=== PATIENT | male | born 1985 | race Caucasian/White ===

== ENCOUNTER 2020-05-05 14:32 | Outpatient (CLI) | payer OTHER ==
--- NOTE | 2020-05-05 15:31 | XRAY Report ---
PROCEDURE: Chest 2 View X-Ray INDICATIONS: PREVIOUS COVID-19 INFECTION TECHNIQUE: 2 view(s) of the chest. COMPARISON: None. FINDINGS: Surgical changes and devices: None. Lungs and pleura: No pleural effusions or pneumothorax. Lungs are clear. Mediastinum: Mediastinal contours are normal. Heart size is normal. Bones and chest wall: No suspicious bony abnormalities. Soft tissues appear unremarkable. IMPRESSION: Chest without acute cardiopulmonary abnormalities. No focal airspace disease. Reviewed by: Reji Jordan MD on 05/05/2020 3:30 PM PST Approved by: Reji Jordan MD on 05/05/2020 3:30 PM PST Station ID: [id number]
== END 2020-05-05 14:33 | disposition home or self-care (01) ==
LOC: DI.N 14:32
PROVIDERS: ATTEND Family Medicine
DX: U07.1 COVID-19 (principal)
CPT/HCPCS: 36415; 80053; 85025

== ENCOUNTER 2020-05-05 14:36 | Outpatient (CLI) | payer OTHER ==
[2020-05-05 18:14] LABS: BASOPHILS % (AUTO) 0.5 %; EOSINOPHILS # (AUTO) 0.2 10^3/uL (0.0-0.7); EOSINOPHILS % (AUTO) 3.6 %; HCT - HEMATOCRIT 46.8 % (42.0-52.0); HGB - HEMOGLOBIN 15.9 g/dL (14.0-18.0); LYMPHOCYTES # (AUTO) 2.5 10^3/uL (1.5-3.5); LYMPHOCYTES % (AUTO) 43.5 %; MEAN CORPUSCULAR HEMOGLOBIN 30.9 pg (27.0-31.0); MEAN CORPUSCULAR VOLUME 91.1 fL (80.0-94.0); MEAN PLATELET VOLUME 9.4 fL (7.4-11.4); MONOCYTES # (AUTO) 0.4 10^3/uL (0.0-1.0); NEUTROPHILS # (AUTO) 2.7 10^3/uL (1.5-6.6); NEUTROPHILS % (AUTO) 46.2 %; PLT - PLATELET COUNT 340 10^3/uL (130-450); RED BLOOD COUNT 5.14 10^6/uL (4.70-6.10); RED CELL DISTRIBUTION WIDTH 13.7 % (12.0-15.0); WHITE BLOOD COUNT 5.8 x10^3/uL (4.8-10.8)
[2020-05-05 18:29] LABS: ALBUMIN 4.8 g/dL (3.2-5.5); ALBUMIN/GLOBULIN RATIO 1.7 (1.0-2.2); BILIRUBIN,TOTAL 0.7 mg/dL (0.2-1.0); CALCIUM 9.8 mg/dL (8.5-10.3); CREATININE 0.9 mg/dL (0.6-1.2); POTASSIUM 3.8 mmol/L (3.5-5.0); TOTAL PROTEIN 7.7 g/dL (6.7-8.2)
== END 2020-05-05 14:37 | disposition home or self-care (01) ==
LOC: LAB.N 14:36
PROVIDERS: ATTEND Family Medicine
DX: U07.1 COVID-19 (principal)
CPT/HCPCS: 36415; 80053; 85025

== ENCOUNTER 2021-11-30 13:01 | Outpatient (CLI) | payer OTHER ==
[2021-11-30] MEDS ORDERED: ALBUTEROL 1 PUFF INH STA (14:27)
== END 2021-11-30 13:02 | disposition home or self-care (01) ==
LOC: RT 13:01
PROVIDERS: ATTEND Physician Assistant
DX: R06.02 Shortness of breath (principal)
CPT/HCPCS: 94060

== ENCOUNTER 2021-12-22 13:52 | Outpatient (CLI) | payer OTHER ==
--- NOTE | 2021-12-22 16:23 | XRAY Report ---
PROCEDURE: Chest 2 View X-Ray INDICATIONS: SOB TECHNIQUE: Two views of the chest COMPARISON: None. FINDINGS: Normal cardiac, mediastinal, and hilar contours. No visible pleural effusion or findings of pneumotho rax. The lungs are clear. IMPRESSION: No acute cardiopulmonary process demonstrated radiographically. Reviewed by: Leif Velazquez MD on 12/22/2021 4:22 PM PDT Approved by: Leif Velazquez MD on 12/22/2021 4:22 PM PDT Station ID: [id number]
== END 2021-12-22 13:53 | disposition home or self-care (01) ==
LOC: DI.N 13:52
PROVIDERS: ATTEND Physician Assistant
DX: R06.02 Shortness of breath (principal); Z51.81 Encounter for therapeutic drug level monitoring; Z13.220 Encounter for screening for lipoid disorders
CPT/HCPCS: 36415; 80053; 80061; 83721; 84443; 85025

== ENCOUNTER 2021-12-22 13:59 | Outpatient (CLI) | payer OTHER ==
[2021-12-22 17:36] LABS: BASOPHILS % (AUTO) 0.5 %; EOSINOPHILS # (AUTO) 0.1 10^3/uL (0.0-0.7); EOSINOPHILS % (AUTO) 1.4 %; HCT - HEMATOCRIT 48.7 % (42.0-52.0); HGB - HEMOGLOBIN 16.5 g/dL (14.0-18.0); LYMPHOCYTES # (AUTO) 2.9 10^3/uL (1.5-3.5); LYMPHOCYTES % (AUTO) 37.8 %; MEAN CORPUSCULAR HEMOGLOBIN 29.9 pg (27.0-31.0); MEAN CORPUSCULAR HGB CONC 33.9 g/dL (32.0-36.0); MEAN CORPUSCULAR VOLUME 88.4 fL (80.0-94.0); MEAN PLATELET VOLUME 9.4 fL (7.4-11.4); MONOCYTES # (AUTO) 0.5 10^3/uL (0.0-1.0); MONOCYTES % (AUTO) 6.8 %; NEUTROPHILS # (AUTO) 4.1 10^3/uL (1.5-6.6); NEUTROPHILS % (AUTO) 53.2 %; PLT - PLATELET COUNT 332 10^3/uL (130-450); RED BLOOD COUNT 5.51 10^6/uL (4.70-6.10); RED CELL DISTRIBUTION WIDTH 12.8 % (12.0-15.0); WHITE BLOOD COUNT 7.6 x10^3/uL (4.8-10.8)
[2021-12-22 18:12] LABS: ALBUMIN 4.9 g/dL (3.2-5.5); ALBUMIN/GLOBULIN RATIO 1.7 (1.0-2.2); ALKALINE PHOSPHATASE 66 IU/L (42-121); ALT ALANINE AMINOTRANSFERASE 17 IU/L (10-60); AST ASPARTATE AMINOTRANSFERASE 24 IU/L (10-42); BILIRUBIN,TOTAL 0.8 mg/dL (0.2-1.0); BUN - BLOOD UREA NITROGEN 14 mg/dL (6-20); CALCIUM 10.3 mg/dL (8.5-10.3); CARBON DIOXIDE - CO2 27 mmol/L (21-32); CHLORIDE 104 mmol/L (101-111); CHOL/HDL RATIO 4.7 (<5.0); CHOLESTEROL 166 mg/dL; GFR - MDRD 86 (>89); GLUCOSE 89 mg/dL (70-100); HDL CHOLESTEROL 35 mg/dL; LDL CHOLESTEROL,CALCULATED 109 mg/dL; LDL/HDL RATIO 3.1 (<3.6); POTASSIUM 3.9 mmol/L (3.5-5.0); SODIUM 139 mmol/L (135-145); TOTAL PROTEIN 7.8 g/dL (6.7-8.2); TRIGLYCERIDES 112 mg/dL; VLDL CHOLESTEROL 22 mg/dL
[2021-12-22 18:15] LABS: THYROID STIMULATING HORMONE 2.24 uIU/mL (0.34-5.60)
== END 2021-12-22 14:00 | disposition home or self-care (01) ==
LOC: LAB.N 13:59
PROVIDERS: ATTEND Physician Assistant
DX: Z51.81 Encounter for therapeutic drug level monitoring (principal); Z13.220 Encounter for screening for lipoid disorders
CPT/HCPCS: 36415; 80053; 80061; 83721; 84443; 85025

== ENCOUNTER 2022-02-23 14:45 | Outpatient (CLI) | payer OTHER ==
[2022-02-23 15:34] VITALS: BP 160/120
--- NOTE | 2022-02-23 15:34 | SLEEP CARE CONSULTATION ---
Information from patient questionnaire entered by Dinorah Coronel. I have reviewed and concur with the information entered by Dinorah Coronel. This document represents the service I personally performed and the decisions made by me, Lilly Bhatti ARNP. History of Present Illness Service Date and Time: 02/23/2022 1445 Reason for Visit: New patient Accompanied by: Spouse (Kym) Chief Complaint: reports: Snoring, Observed pauses in breathing, Fatigue Date of Onset: ALWAYS Usual bedtime: 4 AM Time it takes to fall asleep: MIN Snores at night: Yes Observed to quit breathing while asleep: Yes Sleeps alone due to snoring: Yes Number of times waking at night: 1-2 Reasons for waking at night: reports: Choking, Snoring, Gasping for air Toss, Turn, or Twitch while sleeping: Yes Recalls having dreams: No Usually gets out of bed at: 1PM Feels refreshed in the morning: No Morning headache: Yes (2-3 times a week; last 30-60MIN) Sleepy or fatigued during the day: Yes (will fall asleep unintentionally) Ever fallen asleep while driving: Yes (drowsy driving, no accidents) Takes day naps: Yes (5 times a week, 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 His current complaints are fatigue, observed pauses in breathing and snoring. He states he has sleep problems. His accompanies him today and says he snores loudly and she has noted pauses in breathing. He does wake up from his snoring and sometimes feels like he is choking or needing to gasp for air. 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 Patient is and lives in [place]. Have you smoked in the past 12 months: No Cigarettes per day (20/pack): 20 Years of smokin Quit date: 2005 Smoking Pack Years: 3.0 Alcohol use: No Caffeine use: Yes Caffeine amount and frequency: ALOT DAILY Family History Family history of sleep disordered breathing: No Allergies and Home Medications Known drug allergies: No Drug allergies reviewed: Yes (NKDA) Home medication list reviewed: Yes Allergy and home medication list: Medications: Flovent Albuerol inhaler Review of Systems Weight gain over past 5 years: 10 Cardiovascular: denies: high blood pressure Respiratory: reports: shortness of breath Gastrointestinal: reports: nausea, vomitting Neurological: reports: headaches Psychiatric: reports: anxiety, depression Ear/Nose/Throat: denies: tonsillectomy, wisdom teeth removed Musculoskeletal: reports: joint pain, back pain Immunologic: reports: sneezing Physical Exam Vital signs obtained and entered by: DINORAH Horn MA Blood Pressure: 160/120 (LEFT ARM- pt is nervous and has anxiety issues) Cuff size: regular Heart Rate: 88 O2 Saturation: 96 Height: 5 ft 11 in Weight: 235 lb 12.8 oz Body Mass Index: 32.8 BMI Classification: Obese Neck circumference: 18 Mouth and throat: narrow oropharynx Soft palate: long Hard palate: normal Uvula: normal Uvula visualization: 0% Mallampati Class IV Tongue: enlarged in size with teeth womack on lateral edges Tonsils: small Neck: normal w/o lymphadenopathy or thyromegaly Heart: regular rate and rhythm Lungs: clear bilaterally Impression and Plan 1. Suspected Obstructive Sleep Apnea-Hypopnea Syndrome, as suggested by a history of loud and irregular snoring, observed cessation of breath while aslee p, gasping or choking in sleep, morning headache, unrefreshed sleep, cognitive impairment, and excessive daytime sleepiness. Narrow oropharynx and obesity are common predisposing factors for obstructive sleep apnea-hypopnea syndrome. I recommend proceeding to polysomnography to confirm the diagnosis and to assess severity. If the patient has significant sleep disordered breathing, a manual CPAP titration study will also be performed to find the optimal treatment pressure. I informed the patient of what the sleep studies involve and after some discussion, obtained agreement to proceed. The pathophysiology of obstructive sleep apnea-hypopnea syndrome was discussed with the patient and health risks of cardiovascular and cerebrovascular disease if not treated. 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 Patient agreed to plan. * Schedule polysomnography * Avoid long distance driving or driving when feeling sleepy. * Avoid alcohol, sedative and muscle relaxant around bedtime. * Attempt to lose weight. * Review instructions provided by trained office staff on how to prepare for the sleep study. * Return for follow-up after sleep study completed. Counseling Topics: Weight loss health impact Visit Type: In Office Other Participants: Spouse/Significant Other (Kym) Time Spent with Patient (minutes): 31 Provider Statement: I spent 100% of the Face to Face Visit with the patient with greater than 50% spent counseling the patient and coordination of care.
== END 2022-02-23 14:46 | disposition home or self-care (01) ==
LOC: SC 14:45
PROVIDERS: ATTEND Nurse Practitioner Family
DX: G47.10 Hypersomnia, unspecified (principal); R53.83 Other fatigue; R51.9 Headache, unspecified; G47.8 Other sleep disorders; R06.83 Snoring; R06.81 Apnea, not elsewhere classified; F32.A Depression, unspecified; E66.9 Obesity, unspecified; Z68.32 Body mass index [BMI] 32.0-32.9, adult; Z87.891 Personal history of nicotine dependence
CPT/HCPCS: 99203; 99212

== ENCOUNTER 2022-03-15 19:35 | Outpatient (CLI) | payer OTHER | END 2022-03-15 19:36 | disposition home or self-care (01) | LOC: SC 19:35 | PROVIDERS: ATTEND Nurse Practitioner Family | DX: G47.33 Obstructive sleep apnea (adult) (pediatric) (principal) | CPT/HCPCS: 95810 ==

== ENCOUNTER 2022-03-28 11:18 | Outpatient (CLI) | payer OTHER ==
[2022-03-28 15:26] VITALS: BP 122/82
--- NOTE | 2022-03-28 15:26 | SLEEP CARE CONSULTATION ---
Information from patient questionnaire entered by Osmin Coronel. I have reviewed and concur with the information entered by Osmin Coronel. This document represents the service I personally performed and the decisions made by me, Brayan Meyer MD, [facility]. History of Present Illness Service Date and Time: 03/28/2022 1118 Initial [place] Sleepiness Scale score: 16 (02/23/22) Current [place] Sleepiness Scale score: 15 (03/28/22) Additional HPI information: HPI: Mr. Chu returned for follow up of the sleep study he had on 03/15/2022. The polysomnography showed that the quality of the study is good. The patient had slightly reduced sleep efficiency due to frequent awakenings throughout the night. The sleep architecture was abnormal for sleep fragmentation and reduced amount of time spent in REM and slow wave sleep (N3). Respiratory monitoring showed very severe obstructive sleep apnea-hypopnea (AHI = 81.4) associated with frequent arousals, oxyhemoglobin desaturation and moderate hypoxia (bela oxygen saturation of 76%). Baseline oxygen saturation was normal. The respiratory events occurred almost exclusively during supine sleep (supine AHI = 99.7; non- supine = 4.38). Snore was very loud in intensity. There was no significant periodic leg movement of sleep. Cardiac rhythm was normal sinus rhythm without significant arrhythmia. No abnormal behavior (parasomnia) observed during the night. The patient was informed of these findings. I explained to him the pathophysiology behind obstructive sleep apnea. We then spent quite a bit of time discussing different treatment options. For mild obstructive sleep apnea, surgery and oral appliance are alternatives to nasal CPAP therapy but in moderate or severe cases, nasal CPAP is the most effective and reliable treatment. Weight loss in an obese individual is strongly recommended. After some discussion, he opted to go with the nasal CPAP therapy. I explained to him how CPAP machine works and what to expect when using the machine. He is encouraged to use CPAP every night especially in the first 2 to 3 nights in order to get used to it. He should call his CPAP supplier or me to discuss any mechanical problem that may occur. If he snores or feels like he is not getting enough air from the machine, he should notify me and I will increase the pressure. Sleep Study - Results Type of Sleep Study: Polysomnography (COMPLETED 03/15/2022) Prior sleep studies: No Allergies and Home Medications Drug allergies reviewed: Yes Home medication list reviewed: Yes Allergy and home medication list: Allergies No Known Drug Allergies Allergy (Verified 02/23/22 15:09) Review of Systems Review of systems same as previous: Yes Physical Exam Vital signs obtained and entered by: OSMIN Horn MA Blood Pressure: 122/82 (LEFT ARM) Cuff size: regular Heart Rate: 88 O2 Saturation: 98 Height: 5 ft 11 in Weight: 238 lb 9.6 oz Body Mass Index: 33.3 BMI Classification: Obese Impression and Plan IMPRESSION: 1. Obstructive Sleep Apnea-Hypopnea Syndrome, very severe, associated with moderate hypoxemia and sleep fragmentation. Obviously, this is the cause of the patients symptoms of unrefreshed sleep, and excessive daytime sleepiness. As mentioned above, the patient will be started on an autoCPAP set between 5 and 15 cmH2O. Depending on his response and compliance he may be brought back for an overnight CPAP titration study. PLAN: 1. Prescription made for an autoCPAP, heated humidifier, and related supplies. 2. Attempt to lose weight and avoid alcohol consumption near bedtime. 3. The patient is again cautioned about driving until his sleepiness completely resolves on the CPAP therapy. 4. Return for follow up after one month of using the CPAP. Prescriptions: Auto CPAP Follow up with Sleep Care in: 1-2 months Follow up recommended for: Weight management Visit Type: In Office Other Participants: Other (mother) Time Spent with Patient (minutes): 15 Provider Statement: I spent 100% of the Face to Face Visit with the patient with greater than 50% spent counseling the patient and coordination of care.
== END 2022-03-28 11:19 | disposition home or self-care (01) ==
LOC: SC 11:18
PROVIDERS: ATTEND Internal Medicine Pulmonary Disease
DX: G47.33 Obstructive sleep apnea (adult) (pediatric) (principal); E66.9 Obesity, unspecified; Z68.33 Body mass index [BMI] 33.0-33.9, adult
CPT/HCPCS: 99212

== ENCOUNTER 2022-06-08 14:26 | Outpatient (CLI) | payer OTHER ==
--- NOTE | 2022-06-08 15:08 | SLEEP CARE CONSULTATION ---
Information from patient questionnaire entered by Osmin Coronel. I have reviewed and concur with the information entered by Osmin Coronel. This document represents the service I personally performed and the decisions made by me, Lilly Bhatti ARNP. History of Present Illness Service Date and Time: 06/08/2022 142 Previous diagnosis: Very Severe, Obstructive Sleep Apnea-Hypopnea Syndrome AHI: 81.4 Reason for follow up: first compliance Accompanied by: Spouse Equipment type: CPAP (RESMED Airsense 11, s/u 04/2022) Equipment obtained from: Other ([facility]; got initial supplies) Mask style: Full face (large cushion) Mask brand: Resmed (Airfit F20) Backup mask available: No Last cushion change: 1 month Prior sleep studies: No Type of Sleep Study: Polysomnography (COMPLETED 03/15/2022) HPI additional information: DAVID LONG was diagnosed to have very severe, AHI 81.4, obstructive sleep apnea- hypopnea syndrome and returned today with spouse for CPAP therapy first co mpliance follow-up. Sleep Study - Results Type of Sleep Study: Polysomnography (COMPLETED 03/15/2022) Prior sleep studies: No CPAP Compliance Data - Data Reviewed with Patient Average duration of nightly device use: 4 hours 31 minutes Compliance rate %: 37 ( days used) Current pressure setting (cmH2O): 8-12 (median 11.7, avg 13.0, max 13.3) Average residual AHI: 5.5 Central apnea: 2.6 Obstructive apnea: 0.9 Hypopnea: 1.8 Average large leak: 1.1 lpm Subjective Patient concerns: reports: mask discomfort, air blowing in eyes, mask leak noise, condensation in mask/hose (improved with adjustments to humidity and heated hose). denies: aerophagia, nasal congestion, dry mouth, nose, throat, epistaxis Observed to snore while using device: Yes Current pressure setting perceived as: too low (at night onset) On therapy, patient: denies: sleeping better, awakening more refreshed, being more awake and alert during the day, more rested overall, drowsiness while driving Initial [place] Sleepiness Scale score: 16 (02/23/22) Current [place] Sleepiness Scale score: 11 (06/08/22) Allergies and Home Medications Known drug allergies: No Drug allergies reviewed: Yes Home medication list reviewed: Yes (no changes) Allergy and home medication list: Allergies No Known Drug Allergies Allergy (Verified 06/07/22 15:56) Review of Systems Review of systems same as previous: Yes (no changes) Physical Exam Vital signs obtained and entered by: OSMIN Horn MA Blood Pressure: 138/80 (LEFT ARM) Cuff size: regular Heart Rate: 84 O2 Saturation: 98 Height: 5 ft 11 in Weight: 242 lb Body Mass Index: 33.7 BMI Classification: Obese Impression and Plan 1. Obstructive Sleep Apnea-Hypopnea Syndrome, very severe, with fair treatment compliance and fair apnea control. He has been struggling to use the mask due to mask leaking noises and taking mask off during the night. He feels that he is fighting to get air at the beginning of night and then the pressure is too high when he wakes up during the night. The patients pressure will be changed to autoCPAP 7-11.6 cmH20 for elevation of residual AHI. I will increase ramp starting pressure to 5 cmH2O for patient comfort. Patient advised to contact me if pressure change is uncomfortable so that it can be adjusted. Goals for apnea control discussed. Patient's apnea severity and rationale for treatment to reduce apnea, improve sleep quality and reduce cardiovascular and cerebrovascular events was reviewed. I also reviewed the benefit of consistent device use of CPAP for depression/anxiety. 2. Obesity, unspecified. Currently patients BMI is 33.7. Obesity increases the risk of apnea, CPAP pressure requirements and overall health risks especially cardiovascular and diabetes. Thus patient is advised to lose weight. * Change auto CPAP pressure to 7-11.6 cmH2O * Notify me if snoring with mask or feeling that the pressure is too much or too little * Attempt to lose weight * Call this office if any problems using CPAP * Return for follow up in 1-2 months, or sooner if concerns arise Counseling Topics: Spare mask, Weight loss health impact Visit Type: In Office Time Spent with Patient (minutes): 21 Provider Statement: I spent 100% of the Face to Face Visit with the patient with greater than 50% spent counseling the patient and coordination of care.
[2022-06-08 15:12] VITALS: BP 138/80
== END 2022-06-08 14:27 | disposition home or self-care (01) ==
LOC: SC 14:26
PROVIDERS: ATTEND Nurse Practitioner Family
DX: G47.33 Obstructive sleep apnea (adult) (pediatric) (principal); E66.9 Obesity, unspecified; Z68.33 Body mass index [BMI] 33.0-33.9, adult
CPT/HCPCS: 99212; 99213

== ENCOUNTER 2022-08-30 14:28 | Outpatient (CLI) | payer OTHER ==
--- NOTE | 2022-08-30 15:02 | SLEEP CARE CONSULTATION ---
Information from patient questionnaire entered by Dinorah Coronel. I have reviewed and concur with the information entered by Dinorah Coronel. This document represents the service I personally performed and the decisions made by me, Lilly Bhatti ARNP. History of Present Illness Service Date and Time: 08/30/2022 1428 Previous diagnosis: Very Severe, Obstructive Sleep Apnea-Hypopnea Syndrome AHI: 81.4 Reason for follow up: other (2 MONTH F/U) Accompanied by: Spouse (Kym) Equipment type: CPAP (Airsense 11, s/u 04/2022) Equipment obtained from: Other ([facility]; getting supplies) Mask style: Full face Backup mask available: Yes (old mask) Prior sleep studies: No Type of Sleep Study: Polysomnography (COMPLETED 03/15/2022) HPI additional information: DAVID LONG was diagnosed to have very severe, AHI 81.4, obstructive sleep apnea- hypopnea syndrome and returned today for CPAP therapy two month follow-up. Sleep Study - Results Type of Sleep Study: Polysomnography (COMPLETED 03/15/2022) Prior sleep studies: No CPAP Compliance Data - Data Reviewed with Patient Average duration of nightly device use: 5 HRS 32 MIN Compliance rate %: 72 (06/30/22-08/28/22; 50/60 days) Current pressure setting (cmH2O): 7-11.6 Average residual AHI: 5.2 Central apnea: 1.6 Obstructive apnea: 1.1 Hypopnea: 2.4 Average large leak: 0.4 L/min Subjective Patient concerns: reports: mask discomfort, air blowing in eyes, mask leak noise, nasal congestion, dry mouth, nose, throat (occasional). denies: aerophagia, condensation in mask/hose, epistaxis Observed to snore while using device: Yes Current pressure setting perceived as: comfortable On therapy, patient: reports: awakening more refreshed. denies: sleeping better, being more awake and alert during the day, more rested overall, drows iness while driving (has not been driving) Initial [place] Sleepiness Scale score: 16 (02/23/22) Current [place] Sleepiness Scale score: 15 (08/30/22) Allergies and Home Medications Known drug allergies: No Drug allergies reviewed: Yes Home medication list reviewed: Yes (no changes) Allergy and home medication list: Allergies No Known Drug Allergies Allergy (Verified 08/29/22 16:26) Review of Systems Review of systems same as previous: Yes (no changes) Physical Exam Vital signs obtained and entered by: DINORAH Horn MA Blood Pressure: 142/88 (LEFT ARM) Cuff size: regular Heart Rate: 105 O2 Saturation: 98 Height: 5 ft 11 in Weight: 246 lb 6.4 oz Body Mass Index: 34.3 BMI Classification: Obese Impression and Plan 1. Obstructive Sleep Apnea-Hypopnea Syndrome, very severe, with good treatment compliance and good apnea control with minimally elevated residual AHI at 5.2. On CPAP therapy the patient is not feeling rested overall. He is falling asleep on the couch and forgetting to put the mask on until hours later. He only averages about 5.5 hours nightly. He will sleep a up to 3.5 hours more without the mask on. I advised him to try to sleep more with mask on to get full benefits. He has allergies and I advised trying to use saline nasal spray prior to bedtime to reduce allergens and congestion. He voiced understanding. Patient's apnea severity and rationale for treatment to reduce apnea, improve sleep quality and reduce cardiovascular and cerebrovascular events was reviewed. I also reviewed the benefit of consistent device use of CPAP for depression/anxiety. 2. Obesity, unspecified. Currently patients BMI is 34.3. Obesity increases the risk of apnea, CPAP pressure requirements and overall health risks especially cardiovascular and diabetes. Thus patient is advised to lose weight. * Continue auto CPAP pressure at 7-11 cmH2O * Notify me if snoring with mask or feeling that the pressure is too much or too little * Attempt to lose weight * Call this office if any problems using CPAP * Return for follow up in 3 months, or sooner if concerns arise Counseling Topics: Spare mask, Weight loss health impact Visit Type: In Office Time Spent with Patient (minutes): 22 Provider Statement: I spent 100% of the Face to Face Visit with the patient with greater than 50% spent counseling the patient and coordination of care.
[2022-08-30 15:04] VITALS: BP 142/88
== END 2022-08-30 14:29 | disposition home or self-care (01) ==
LOC: SC 14:28
PROVIDERS: ATTEND Nurse Practitioner Family
DX: G47.33 Obstructive sleep apnea (adult) (pediatric) (principal); E66.9 Obesity, unspecified; Z68.34 Body mass index [BMI] 34.0-34.9, adult
CPT/HCPCS: 99212; 99213

== ENCOUNTER 2023-10-03 11:04 | Outpatient (CLI) | payer OTHER ==
--- NOTE | 2023-10-03 11:52 | Sleep Patient Instructions ---
Sleep Center Visit Summary - Patient Visit Information Reason for Visit: 10-month follow-up - Patient Instructions Additional Instructions: You were here for follow up of CPAP therapy. You will be continued on CPAP therapy with pressure at 7-12 cmH2O. An updated supply prescription will be sent to your supplier. You should follow up with sleep care in 12 months. You may contact us sooner for any questions or concerns. - Clinic Information Contact: [facility] [address] [place] [id number] [email or web address] T: [phone]
--- NOTE | 2023-10-03 11:55 | SLEEP CARE CONSULTATION ---
Information from patient questionnaire entered by Osmin Coronel. I have reviewed and concur with the information entered by Osmin Coronel. This document represents the service I personally performed and the decisions made by , Lilly Bhatti ARNP. History of Present Illness Service Date and Time: 10/03/2023 1104 Previous diagnosis: Very Severe, Obstructive Sleep Apnea-Hypopnea Syndrome AHI: 81.4 Reason for follow up: other (10 MONTH F/U) Equipment type: CPAP (ResMed Airsense 11, s/u 04/2022) Equipment obtained from: Other ([facility]; getting supplies) Mask style: Full face Backup mask available: Yes Last cushion change: 3 months Prior sleep studies: No Type of Sleep Study: Polysomnography (COMPLETED 03/15/2022) HPI additional information: DAVID LONG was diagnosed to have very severe, AHI 81.4, obstructive sleep apnea- hypopnea syndrome and returned today for CPAP therapy 10 month follow-up. Sleep Study - Results Type of Sleep Study: Polysomnography (COMPLETED 03/15/2022) Prior sleep studies: No CPAP Compliance Data - Data Reviewed with Patient Average duration of nightly device use: 6 HRS 6 MINS Compliance rate %: 70 (11/27/22-09/27/23) Current pressure setting (cmH2O): 7-12 Average residual AHI: 3.2 Central apnea: 1.7 Obstructive apnea: 0.6 Hypopnea: 0.8 Average large leak: 0.4 L/min Subjective Missed days of use due to: reports: mask issues Patient concerns: reports: dry mouth, nose, throat, other (SNORING WHILE USING THE DEVICE). denies: aerophagia, mask discomfort, air blowing in eyes, mask leak noise, condensation in mask/hose, nasal congestion, epistaxis Observed to snore while using device: Yes (occasional) Current pressure setting perceived as: comfortable On therapy, patient: reports: sleeping better, awakening more refreshed, being more awake and alert during the day, more rested overall. denies: drowsiness while driving Initial Adams Sleepiness Scale score: 16 (02/23/22) Current Adams Sleepiness Scale score: 11 (10/03/23) Allergies and Home Medications Known drug allergies: No Drug allergies reviewed: Yes Home medication list reviewed: Yes (no changes) Allergy and home medication list: Allergies No Known Drug Allergies Allergy (Verified 10/03/23 11:06) Review of Systems Review of systems same as previous: No (DIVERTICULOSIS) Physical Exam Vital signs obtained and entered by: OSMIN Horn MA Blood Pressure: 153/82 (RIGHT ARM) Cuff size: long Heart Rate: 91 O2 Saturation: 98 Height: 5 ft 11 in Weight: 239 lb 9.6 oz Body Mass Index: 33.4 BMI Classification: Obese Impression and Plan 1. Obstructive Sleep Apnea-Hypopnea Syndrome, very severe, with good treatment compliance and good apnea control. On CPAP therapy, the patient has better sleep quality and is more rested overall. He has significant improvement of his sleep apnea and is comfortable with CPAP use. He says his supplier needed him to check in with his provider before he could get supplies. I will update his supply prescription. He had no other issues or complaints. Patient's apnea severity and rationale for treatment to reduce apnea, improve sleep quality and reduce cardiovascular and cerebrovascular events was reviewed. I also reviewed the benefit of consistent device use of CPAP for depression/anxiety. 2. Obesity, unspecified. Currently patients BMI is 33.4. Obesity increases the risk of apnea, CPAP pressure requirements and overall health risks especially cardiovascular and diabetes. Thus patient is advised to lose weight. * Continue auto CPAP pressure at 7-12 cmH2O * Update supply prescription * Notify me if snoring with mask or feeling that the pressure is too much or too little * Attempt to lose weight * Call this office if any problems using CPAP * Return for follow up in 12 months, or sooner if concerns arise Counseling Topics: Spare mask, Weight loss health impact Prescriptions: Device supplies Follow up with Sleep Care in: 1 year Visit Type: In Office Time Spent with Patient (minutes): 13 Provider Statement: I spent 100% of the Face to Face Visit with the patient with greater than 50% spent counseling the patient and coordination of care.
[2023-10-03 12:01] VITALS: BP 153/82; O2SAT 98
== END 2023-10-03 11:05 | disposition home or self-care (01) ==
LOC: SC 11:04
PROVIDERS: ATTEND Nurse Practitioner Family
DX: G47.33 Obstructive sleep apnea (adult) (pediatric) (principal); E66.9 Obesity, unspecified; Z68.33 Body mass index [BMI] 33.0-33.9, adult
CPT/HCPCS: 99212

== ENCOUNTER 2023-10-13 13:00 | Outpatient (CLI) | payer OTHER ==
--- NOTE | 2023-10-13 15:16 | XRAY Report ---
PROCEDURE: Cervical Spine 2-3V INDICATIONS: RADICULAR PAIN TECHNIQUE: 3 view(s) of the cervical spine were acquired. COMPARISON: None. FINDINGS: Bones: No fractures or dislocations to the T1 level. The lateral masses of C1 appear intact on the odontoid view. No suspicious bony lesions. Minimal, multilevel disc height loss. Mild right facet ar throsis at C5-6. Soft tissues: No prevertebral soft tissue swelling. IMPRESSION: Minimal, multilevel degenerative disc disease. Mild right facet arthrosis at C5-6. Reviewed by: Aly Castro MD on 10/13/2023 3:15 PM PDT Approved by: Aly Castro MD on 10/13/2023 3:15 PM PDT Station ID: [id number]
--- NOTE | 2023-10-13 15:16 | XRAY Report ---
PROCEDURE: Shoulder 2+V RT INDICATIONS: PAIN IN RIGHT SHOULDER TECHNIQUE: 3 views of the shoulder were acquired. COMPARISON: None. FINDINGS: Bones: No fractures or dislocations. No suspicious bony lesions. Visualized ribs appear intact. Soft tissues: No suspicious soft tissue calcifications. The visualized lungs are within normal limi ts. IMPRESSION: No acute bony abnormality. Reviewed by: Aly Castro MD on 10/13/2023 3:15 PM PDT Approved by: Aly Castro MD on 10/13/2023 3:15 PM PDT Station ID: [id number]
== END 2023-10-13 13:15 | disposition home or self-care (01) ==
LOC: DI.N 13:00
PROVIDERS: ATTEND Registered Nurse
DX: M47.812 Spondylosis without myelopathy or radiculopathy, cervical region (principal); M50.30 Other cervical disc degeneration, unspecified cervical region; M25.511 Pain in right shoulder